=== PATIENT | female | born 1970 | race Caucasian/White ===

== ENCOUNTER 2018-02-24 21:38 | Emergency (ER) | payer OTHER ==
[2018-02-24 22:02] LABS: Bilirubin Negative (Negative); Blood, Urine Trace (Negative); Clarity Clear (Clear); Glucose, Urine (Dipstick) Negative (Negative); Leukocyte Negative (Negative); Nitrite Positive (Negative); Protein, Urine (Dipstick) Negative (Neg-Trace); Specific Gravity, Urine 1.015 (1.005-1.030); Urobilinogen 0.2 mg/dL (0.2-1.0); pH, Urine 8.5 (5.0-9.0)
[2018-02-24 22:04] LABS: Pregnancy Test - Urine (BHCG) Negative (Negative)
[2018-02-24 22:05] LABS: Bacteria/HPF 2+ HPF (None Seen); Pregu Control Background? CLEAR/WHITE (CLR/WHITE); Pregu Control Bar Appear? YES (CONTROL BAR); Specific Gravity 1.015 (1.002-1.036)
[2018-02-24] MEDS ORDERED: Ketorolac Tromethamine 30 MG/ML VIAL ONE (22:26)
[2018-02-24] MEDS ORDERED: Ondansetron PF 4 MG/2 ML Vial ONE (22:26)
[2018-02-24 22:40] LABS: #Basophils 0.1 thou/uL (0.0-0.2); #Monocytes 0.8 thou/uL (0.11-0.59); #Neutrophils 11.5 thou/uL (1.40-6.50); %Basophils 0.7 % (0.0-1.0); %Eosinophils 0.1 % (0.0-10.0); %Lymphocytes 7.5 % (21.0-51.0); %Monocytes 5.9 % (0.0-10.0); %Neutrophils 85.8 % (42.0-75.0); Hemoglobin 14.2 g/dL (12.0-16.0); Mean Corpuscular HGB CONC 33.1 g/dL (32.0-36.0); Mean Corpuscular Hemoglobin 29.4 pg (27.0-31.0); Mean Corpuscular Volume 88.7 fL (78.0-98.0); Mean Platelet Volume 8.7 fL (7.4-10.4); Platelet Count 205 thou/uL (130-400); RBC Distribution Width 10.8 % (11.5-14.5); Red Blood Cell (RBC) Count 4.84 mill/uL (4.20-5.40); White Blood Cell (WBC) Count 13.4 thou/uL (4.8-10.8)
[2018-02-24 22:58] LABS: ALT (SGPT) 21 U/L (8-55); AST (SGOT) 17 U/L (5-34); Albumin 4.4 g/dL (3.5-5.0); Alkaline Phosphatase 69 U/L (40-150); Anion Gap 16 mmol/L (10-20); BUN (Urea Nitrogen) 15 mg/dL (7.0-18.7); Bilirubin, Total 0.6 mg/dL (0.2-1.2); Calc. Creatinine Clearance 0 mL/min (70-130); Calcium 9.5 mg/dL (7.8-10.44); Carbon Dioxide 21 mmol/L (22-29); Chloride 103 mmol/L (98-107); Estimated GFR-MDRD 88; Globulin 3.2 g/dL (2.4-3.5); Glucose 112 mg/dL (70-105); Potassium 3.7 mmol/L (3.5-5.1); Protein, Total 7.6 g/dL (6.0-8.3); Sodium 136 mmol/L (136-145)
--- NOTE | 2018-02-24 23:24 | CT ---
CT ABDOMEN AND PELVIS WITHOUT CONTRAST: HISTORY: Sharp abdominal pain. The patient has a history of kidney stones. COMPARISON: 02/22/2011 TECHNIQUE: Multiple contiguous axial images were obtained in a CT of the abdomen and pelvis without contrast. C oronal reformats were performed. FINDINGS: The liver, gallbladder, adrenal glands, spleen, and pancreas are unremarkable. There are small, nono bstructing calcifications in both kidneys, measuring up to 2 mm in size. No calcifications are seen in either ureter or within the urinary bladder. Multiple phleboliths are seen in the pelvis. The ut erus is slightly prominent, which could potentially be from uterine fibroids. The large and small bowel are unremarkable. The appendix is unremarkable. No abdominal or pelvic ly mphadenopathy is seen. IMPRESSION: 1. Nonobstructing bilateral renal calcifications. 2. Enlargement of the uterus, which could potentially be secondary to uterine fibroids, which cannot be appreciated on this noncontrast examination, POS: [facility]
[2018-02-25] MEDS ORDERED: Cipro 250 MG TAB ONE (00:15)
== END 2018-02-25 00:26 | disposition home or self-care (01) ==
LOC: NAV ERS 21:38
DX: N12 Tubulo-interstitial nephritis, not specified as acute or chronic (principal); D72.829 Elevated white blood cell count, unspecified; F41.9 Anxiety disorder, unspecified
CPT/HCPCS: 36415; 74176; 80053; 81003; 81015; 81025; 83605; 85025; 96361; 96374; 96375; J1885; J2405

== ENCOUNTER 2021-01-01 11:31 | Emergency (ER) | payer OTHER ==
[2021-01-01] MEDS ORDERED: diphenhydrAMINE 50 MG/ML VIAL ONE (12:08)
[2021-01-01] MEDS ORDERED: Metoclopramide HCl 10 MG/2 ML VIAL ONE (12:08)
[2021-01-01 12:22] LABS: #Lymphocytes 1.3 thou/uL (1.20-3.40); #Monocytes 0.3 thou/uL (0.11-0.59); #Neutrophils 2.2 thou/uL (1.40-6.50); %Basophils 0.9 % (0.0-1.0); %Lymphocytes 33.3 % (21.0-51.0); %Monocytes 6.8 % (0.0-10.0); Hemoglobin 15.4 g/dL (12.0-16.0); Mean Corpuscular HGB CONC 33.8 g/dL (32.0-36.0); Mean Corpuscular Hemoglobin 30.6 pg (27.0-31.0); Mean Corpuscular Volume 90.5 fL (78.0-98.0); Mean Platelet Volume 9.3 fL (7.4-10.4); Platelet Count 228 thou/uL (130-400); RBC Distribution Width 10.7 % (11.5-14.5); Red Blood Cell (RBC) Count 5.04 mill/uL (4.20-5.40); White Blood Cell (WBC) Count 3.8 thou/uL (4.8-10.8)
[2021-01-01 12:35] LABS: ALT (SGPT) 15 U/L (8-55); AST (SGOT) 20 U/L (5-34); Albumin 4.2 g/dL (3.5-5.0); Alkaline Phosphatase 62 U/L (40-110); Anion Gap 12 mmol/L (10-20); BUN (Urea Nitrogen) 8 mg/dL (9.8-20.1); Bilirubin, Total 0.7 mg/dL (0.2-1.2); Calc. Creatinine Clearance 0 mL/min (70-130); Calcium 9.3 mg/dL (7.8-10.44); Carbon Dioxide 25 mmol/L (22-29); Chloride 104 mmol/L (98-107); Globulin 3.5 g/dL (2.4-3.5); Glucose 105 mg/dL (70-105); Potassium 3.4 mmol/L (3.5-5.1); Protein, Total 7.7 g/dL (6.0-8.3); Sodium 138 mmol/L (136-145)
== END 2021-01-01 13:17 | disposition home or self-care (01) ==
LOC: NAV ERS 11:31
DX: G43.909 Migraine, unspecified, not intractable, without status migrainosus (principal)
CPT/HCPCS: 80053; 85025; 96365; 96375; J1200; J2765

== ENCOUNTER 2021-11-02 11:18 | Emergency (ER) | payer OTHER | END 2021-11-02 12:20 | disposition home or self-care (01) | LOC: NAV ERS 11:18 | DX: S29.011A Strain of muscle and tendon of front wall of thorax, initial encounter (principal); X58.XXXA Exposure to other specified factors, initial encounter ==